=== PATIENT | female | born 1955 | race Two or more races ===

== ENCOUNTER 2018-02-12 07:20 | Outpatient (CLI) | payer OTHER | END 2018-02-12 07:34 | disposition home or self-care (01) | LOC: NUCLEAR 07:20 | DX: I87.2 Venous insufficiency (chronic) (peripheral) (principal) ==

== ENCOUNTER 2019-03-03 09:48 | Outpatient (CLI) | payer OTHER | END 2019-03-03 10:11 | disposition home or self-care (01) | LOC: NUCLEAR 09:48 | DX: R55 Syncope and collapse (principal); I10 Essential (primary) hypertension ==

== ENCOUNTER → 2019-03-03 | Outpatient (CLI) | payer OTHER ==
[~2019-03-03] MED LIST: TRAMADOL HCL50 MG PO
== END | disposition home or self-care (01) ==
LOC: TOM 03:19
DX: R55 Syncope and collapse (principal)

== ENCOUNTER 2020-04-29 08:48 | Outpatient (CLI) | payer OTHER ==
[~2020-04-29 08:48] MED LIST changes: +CYCLOBENZAPRINE10 MG PO; +DICLOFENAC POTA50 MG PO
== END 2020-04-29 08:56 | disposition home or self-care (01) ==
LOC: SONOGRAMA 08:48
PROVIDERS: ATTEND Internal Medicine Cardiovascular Disease
DX: R10.84 Generalized abdominal pain (principal)

== ENCOUNTER 2021-07-21 08:07 | Outpatient (CLI) | payer OTHER | END 2021-07-21 08:17 | disposition home or self-care (01) | LOC: TOM 08:07 | PROVIDERS: ATTEND Internal Medicine Cardiovascular Disease | DX: E04.1 Nontoxic single thyroid nodule (principal); M12.89 Other specific arthropathies, not elsewhere classified, multiple sites; R13.19 Other dysphagia | CPT/HCPCS: 70491; Q9965 ==

== ENCOUNTER 2021-08-01 08:31 | Outpatient (CLI) | payer OTHER | END 2021-08-01 08:41 | disposition home or self-care (01) | LOC: TOM 08:31 | PROVIDERS: ATTEND Internal Medicine | DX: R91.1 Solitary pulmonary nodule (principal) ==

== ENCOUNTER 2024-04-25 08:08 | Outpatient (CLI) | payer OTHER | END 2024-04-25 08:23 | disposition home or self-care (01) | LOC: TOM 08:08 | PROVIDERS: ATTEND Internal Medicine Cardiovascular Disease | DX: R41.2 Retrograde amnesia (principal); G30.9 Alzheimer's disease, unspecified | CPT/HCPCS: 70460; Q9965 ==

== ENCOUNTER 2024-05-20 10:48 | Outpatient (CLI) | payer OTHER | END 2024-05-20 10:50 | disposition home or self-care (01) | LOC: NUCLEAR 10:48 | PROVIDERS: ATTEND Psychiatry & Neurology Clinical Neurophysiology | DX: G30.1 Alzheimer's disease with late onset (principal) | CPT/HCPCS: 78803; A9557 ==

== ENCOUNTER 2024-12-09 17:24 | Emergency (ER) | payer OTHER ==
[~2024-12-09] VITALS: Ht 160 cm; Wt 49.9 kg
[2024-12-09] MEDS ORDERED: NAMENDA XR7 MG PO (17:40)
[2024-12-09] MEDS ORDERED: LIPITOR20 MG (17:41)
[2024-12-09] MEDS ORDERED: ARICEPT5 MG (17:41)
[2024-12-09] MEDS ORDERED: FOLIC ACID1 MG PO (17:42)
[2024-12-09] MEDS ORDERED: ROSUVASTATIN CA20 MG PO (17:42)
[2024-12-09] MEDS ORDERED: VITAMIN D3125 MC1 PO (17:42)
[2024-12-09 19:28] LABS: HEMOGLOBIN 15.7 g/dL (12.0-15.00); MEAN CELL VOLUME 92.5 fL (80.00-100.00); MEAN CORPUSCULAR HEMOGLOBIN 32.2 pg (27.00-32.0); MEAN CORPUSCULAR HGB CONC 34.8 g/dl (32.0-36.0); PLATELET COUNT 153 K/uL (150-450); RED BLOOD COUNT 4.87 M/uL (4.00-6.00); RED CELL DISTRIBUTION WIDTH 13.4 % (11.5-14.5)
[2024-12-09 19:58] LABS: BILIRUBIN TOTAL 1.28 mg/dL (0.3-1.2); CALCIUM 9.3 mg/dL (8.5-10.1); CREATININE SERUM 0.79 mg/dL (0.55-1.02); GFR 71.74; GLOBULINA 3.2 G/DL (2.4-3.5); POTASSIUM 4.89 mEq/L (3.5-5.1); TOTAL PROTEIN 7.2 gm/dL (6.4-8.2)
== END 2024-12-09 21:27 | disposition home or self-care (01) ==
LOC: ER 17:27
DX: R07.9 Chest pain, unspecified (principal); Z20.822 Contact with and (suspected) exposure to COVID-19

== ENCOUNTER 2025-02-25 10:16 | Outpatient (CLI) | payer OTHER ==
[~2025-02-25 10:16] MED LIST changes: +ARICEPT5 MG; +FOLIC ACID1 MG PO; +LIPITOR20 MG; +NAMENDA XR7 MG PO; +ROSUVASTATIN CA20 MG PO; +VITAMIN D3125 MC1 PO
== END 2025-02-25 10:25 | disposition home or self-care (01) ==
LOC: SONOGRAMA 10:16
PROVIDERS: ATTEND Internal Medicine Rheumatology
DX: M77.02 Medial epicondylitis, left elbow (principal); M19.022 Primary osteoarthritis, left elbow

== ENCOUNTER → 2025-04-26 | Emergency (ER) | payer OTHER ==
[~2025-04-26] VITALS: Ht 160 cm; Wt 49.9 kg
[~2025-04-26] MED LIST changes: +KETOROLAC TROMETHAMINE 30 MG VIAL IM ONE; +MEMANTINE HCL10 MG PO; +NORFLEX100MG PO; +TIZANIDINE HCL4 MG PO
[2025-04-26 15:32] LABS: BASO % 0.2 % (0.1-1.2); EOS # 0.12 (0.04-0.54); EOS % 1.9 % (0.7-7.0); LYMPH # 0.91 (1.18-3.74); LYMPH % 14.5 % (19.3-53.1); MEAN PLATELET VOLUME 9.60 fl (9.4-12.4); MONO # 0.41 (0.24-0.82); MONO % 6.5 % (4.7-12.5); NEUT # 4.79 (1.56-6.13); NEUT % 76.4 % (34.0-71.1); RED CELL DISTRIBUTION WIDTH 12.5 % (11.6-14.4)
[2025-04-26 16:07] LABS: ALT/SGPT 26.0 U/L (12-78); AST/SGOT 18.0 U/L (15-37); BILIRUBIN TOTAL 0.56 mg/dL (0.3-1.2); BUN CREA RATIO 14.0 (7.0-25.0); CREATININE SERUM 0.88 mg/dL (0.55-1.02); GFR 63.34; GLOBULINA 3.7 G/DL (2.4-3.5); GLUCOSE FASTING 110.0 mg/dL (65-100); OSMOLALITY SERUM 284.0 MOSM/KG (275-295)
[2025-04-26 16:29] LABS: COVID-19 AG NEGATIVE (NEGATIVE)
== END | disposition home or self-care (01) ==
LOC: ER 12:26
PROVIDERS: General Practice
DX: M94.0 Chondrocostal junction syndrome [Tietze] (principal); R07.89 Other chest pain; E78.00 Pure hypercholesterolemia, unspecified; G30.8 Other Alzheimer's disease; F02.80 Dementia in other diseases classified elsewhere, unspecified severity, without behavioral disturbance, psychotic disturbance, mood disturbance, and anxiety; Z20.822 Contact with and (suspected) exposure to COVID-19
CPT/HCPCS: 36415; 71046; 93005; 96372; 99283; J1885

== ENCOUNTER 2025-09-03 09:27 | Outpatient (CLI) | payer OTHER ==
[~2025-09-03 09:27] MED LIST changes: -KETOROLAC TROMETHAMINE 30 MG VIAL IM ONE
== END 2025-09-03 09:30 | disposition home or self-care (01) ==
LOC: MAMO-SONO 09:27
PROVIDERS: ATTEND Internal Medicine Cardiovascular Disease
DX: N60.11 Diffuse cystic mastopathy of right breast (principal); N60.12 Diffuse cystic mastopathy of left breast; Z12.31 Encounter for screening mammogram for malignant neoplasm of breast